=== PATIENT | female | born 1950 | race Caucasian/White ===

== ENCOUNTER 2017-05-08 12:42 | Emergency (ER) | payer MEDICARE, MEDICAID ==
[2017-05-08] MEDS ORDERED: ALBUTEROL SULFATE/IPRATROPIUM 3 ML NEBU IH ONE ×2 (12:53→15:40)
[2017-05-08 13:14] LABS: Hematocrit 39.1 % (37.0-47.0); Hemoglobin 12.3 gm/dL (12.5-16.0); Mean Cell Volume 91.4 fl (78-100); Mean Corpuscular Hemoglobin 28.7 pg (27-31); Mean Corpuscular Hgb Conc 31.5 g/dl (32-36); Mean Platelet Volume 10.5 fl (6.0-9.5); Platelet Count 270 K/mm3 (150-450); Red Blood Count 4.28 M/mm3 (4.2-5.4); Red Cell Distribution Width 13.1 % (11.5-14.0); White Blood Count 6.7 K/mm3 (4.0-10.5)
[2017-05-08 13:19] LABS: Total Cells Counted 100
[2017-05-08 13:27] LABS: Albumin * 2.8 gm/dl (3.4-5.0); Anion Gap 2.4 mmol/L (6.8-13.8); BUN/Creatinine Ratio 15.3 (9.0-21.6); Bilirubin, Total 0.3 mg/dL (0.0-1.1); Calcium * 9.4 mg/dL (7.9-10.9); Potassium 2.9 mmol/L (3.4-4.6); Total Protein 6.8 gm/dL (6.2-8.2)
[2017-05-08 13:34] LABS: Carbon Dioxide 42.5 mmol/L (24-32.6)
[2017-05-08 13:49] LABS: Atypical (Reactive) Lymph 7 % (0-2); Band 3 % (0-2.0); Basophil 1 % (0-1); Eosinophil 4 % (0-3); Immature Granulocyte 1 (0-1); Lymphocyte 14 % (20-51); Monocyte 10 % (0-9); Neutrophil 60 % (42-75)
[2017-05-08 13:51] LABS: Dohle Bodies Trace; Platelet Estimate Normal (NORMAL); Toxic Granulation 1+
[2017-05-08 15:07] VITALS: BP 125/74
--- NOTE | 2017-05-08 16:51 | ERNOTE ---
Trauma/Assault HPI - Narrative Date of Service: 05/08/17 - General Stated Complaint: FALL Time Seen by Provider: 05/08/17 12:45 Source: patient, EMS Exam Limitations: dementia - Immun/Allergies/Home Medications Immunizations: IMMUNIZATION HX Immunizations Up to Date unknown - pt is poor historian Hx Pneumococcal Vaccination More Information Required Allergies/Adverse Reactions: Allergies amoxicillin Allergy (Unknown, Verified 05/08/17 13:20) cephalexin [From Keflex] Allergy (Unknown, Verified 05/08/17 13:20) diatrizoate meglumine [From Renografin-60] Allergy (Unknown, Verified 05/08/17 13:20) diatrizoate sodium [From Renografin-60] Allergy (Unknown, Verified 05/08/17 13: 20) Iodinated Contrast- Oral and IV Dye Allergy (Unknown, Verified 05/08/17 13:20) iodine Allergy (Unknown, Verified 05/08/17 13:20) orphenadrine Allergy (Unknown, Verified 05/08/17 13:20) Quinolones Allergy (Unknown, Verified 05/08/17 13:20) Sulfa (Sulfonamide Antibiotics) Allergy (Unknown, Verified 05/08/17 13:20) Home Medications: HOME MEDICATIONS Acetaminophen [Mapap] 325 mg PO Q4H PRN 05/08/17 [Last Taken Unknown] Albuterol Sulfate [Albuterol Sulfate 0.63 MG/3ML] 0.083 mg IH Q4H PRN 05/08/17 [ Last Taken Unknown] Albuterol Sulfate [Ventolin HFA] 2 puff IH Q4H PRN 05/08/17 [Last Taken Unknown] Alprazolam [Xanax] 0.5 mg PO Q8H 05/08/17 [Last Taken Unknown] Amlodipine Besylate 10 mg PO DAILY 05/08/17 [Last Taken Unknown] Bisacodyl [Dulcolax Suppository] 10 mg RC Q3D PRN 05/08/17 [Last Taken Unknown] Bisacodyl [Dulcolax] 10 mg PO DAILY PRN 05/08/17 [Last Taken Unknown] Budesonide/Formoterol Fumarate [Symbicort 160-4.5 Mcg Inhaler] 2 puff IH BID [Last Taken Unknown] Cyclobenzaprine HCl 5 mg PO TID PRN 05/08/17 [Last Taken Unknown] Docusate Sodium [Doc-Q-Lace] 100 mg PO BID 05/08/17 [Last Taken Unknown] Ipratropium/Albuterol Sulfate [Combivent Respimat Inhal [place]] 1 puff IH QID [Last Taken Unknown] Omeprazole 20 mg PO DAILY 05/08/17 [Last Taken Unknown] Polyethylene Glycol 3350 [Miralax] 17 gm PO DAILY 05/08/17 [Last Taken Unknown] Potassium Chloride [K-Dur] 20 meq PO DAILY #5 tab 05/08/17 [Last Taken Unknown] Sertraline HCl [Zoloft] 50 mg PO DAILY 05/08/17 [Last Taken Unknown] risperiDONE [Risperdal] 0.5 mg PO Q8H 05/08/17 [Last Taken Unknown] - History of Present Illness Narrative: Patient presents from DC. By report she stood up and fell from the wheelchair injuring her right hip and there was concern for hip injury. She by report has chronic neck pain, this was present before the fall and nothing in the fall that would have caused a neck injury. She may have bumped her head but no LOC. She has dementia cannot provide any Hx. Location Occurred: Reports: other - [facility] Pain Location: Reports: other - right lateral hip area Method of Injury: Reports: fall Modifying Factors - (Worsens): Reports: movement Loss of Consciousness: Reports: no loss of consciousness Associated Symptoms - Trauma: Reports: other - unknown Review of Systems - Narrative Narrative: unable due to dementia - Review of Systems Constitutional: Absent: fever - Patient's Past Medical History Patient History - Medical: Anemia, Anxiety, Dementia, GERD Patient History - Cardiac/Respiratory: Asthma, COPD - Social History Smoking Status: Unknown if ever smoked - Immunizations Immunizations Up to Date: - unknown - pt is poor historian Hx Pneumococcal Vaccination: More Information Required to Determine Physical Exam - Physical Exam General Appearance: Present: no apparent distress Head Exam: Present: normal inspection, no evidence of injury. Absent: Valladares's Sign, raccoon eyes Eye Exam: Normal inspection: bilateral, PERRL: bilateral Ears, Nose, Throat: Present: normal ENT inspection Neck: Present: other - there is tendenrss low paraspinal neck musculature. After CT, no localizing point vertebral tendenress and no upper cervial spine tendenress. Nothing clinically to suggest fracture or ligamentous injury. Respiratory: Present: no respiratory distress, normal breath sounds, no accessory muscle use, other - few faint wheezes, resolved with neb. No clear chest tenderness. Cardiovascular/Chest: Present: regular rate, rhythm, normal peripheral pulses Gastrointestinal/Abdominal: Present: normal bowel sounds, nontender, soft Back Exam: Present: no vertebral tenderness Extremity Exam: Present: other - Mild lateral right hip tenderness. No clear evidence of fracture. Neurological Exam: Present: no motor/sensory deficits, other - alert but dementia noted. Skin Exam: Present: normal color, warm/dry ED Progress - Results and Orders Patient's Lab Results:: I have reviewed the patient's lab results. - Vital Signs Patient's Vital Signs:: I have reviewed the patient's vital signs. Vital Signs: Vital Signs 05/08/17 05/08/17 05/08/17 12:45 12:53 14:09 Temperature 36.2 C L Pulse Rate 111 H 112 H Respiratory 22 H 109 H Rate Blood Pressure 158/93 146/87 O2 Sat by Pulse Oximetry 05/08/17 05/08/17 14:54 15:42 Temperature Pulse Rate 108 H 108 H Respiratory 14 21 H Rate Blood Pressure 125/74 O2 Sat by Pulse 94 94 Oximetry - EKG EKG: NSR EKG read: Interp. by me EKG Comments: NSR rate 108 Non-specific changes, no STEMI. - X-Ray X-Ray #1 X-Ray: chest Interpretation: Interp. by me X-ray Comments: I reviewed officail radiology report X-Ray #2 X-Ray: hip Interpretation: Interp. by me X-ray Comments: I reviewed official radiology report - CT/Ultrasound CT/Ultrasound Narrative: I reviewed official radiology report for HCT and Cspine CT - Progress/Reassessment Chief Complaint: Fall Progress Note-Subjective: 05/08/17 16:[address] Mancuso. The elevated CO2 is felt to be chronic. She is in no respiratory distress. No clear Fx. She needs close f/u. Will return to the DC with close f/u/ Departure Clinical Impression: Fall, Musculoskeletal pain, Hypokalemia - Departure Disposition: [facility] Condition: Stable Instructions: Musculoskeletal Pain Additional Instructions: Rest. Close observation. Follow-up with primary doctor thursday for a re-check. Additional x-rays may be needed based on patient's symptoms. Return for increased pain, confusion, trouble breathing or if your condition worsens or changes in any way. Prescriptions: Potassium Chloride [K-Dur] 20 meq PO DAILY #5 tab Critical Care Time - Critical Care Critical Time Spent:: No Total time (mins) Spent:: 0
== END 2017-05-08 18:22 ==
LOC: ER 12:42
DX: M79.1 Myalgia (principal); E87.6 Hypokalemia; D64.9 Anemia, unspecified; K21.9 Gastro-esophageal reflux disease without esophagitis; J44.9 Chronic obstructive pulmonary disease, unspecified; F03.90 Unspecified dementia, unspecified severity, without behavioral disturbance, psychotic disturbance, mood disturbance, and anxiety; W18.39XA Other fall on same level, initial encounter; Z91.81 History of falling; Y93.89 Activity, other specified; Y92.129 Unspecified place in nursing home as the place of occurrence of the external cause

== ENCOUNTER 2017-05-12 10:08 | Emergency (ER) | payer MEDICARE, MEDICAID ==
[2017-05-12 10:40] LABS: Hematocrit 40.3 % (37.0-47.0); Hemoglobin 12.5 gm/dL (12.5-16.0); Mean Cell Volume 94.4 fl (78-100); Mean Corpuscular Hemoglobin 29.3 pg (27-31); Mean Platelet Volume 10.3 fl (6.0-9.5); Platelet Count 272 K/mm3 (150-450); Red Blood Count 4.27 M/mm3 (4.2-5.4); Red Cell Distribution Width 13.7 % (11.5-14.0); White Blood Count 7.8 K/mm3 (4.0-10.5)
[2017-05-12 10:42] LABS: Total Cells Counted 100
[2017-05-12 10:51] LABS: Prothrombin Time (Patient) 11.9 Seconds (9.0-11.0)
[2017-05-12 10:52] LABS: INR 1.19 INR (0.90-1.10); Partial Thrombolplastin Time 30.7 Seconds (24-32)
[2017-05-12 11:00] LABS: ALT 24 U/L (19-67); AST 24 U/L (0-48); Albumin * 2.6 gm/dl (3.4-5.0); Alkaline Phosphatase * 151 U/L (50-170); Anion Gap 3.2 mmol/L (6.8-13.8); BUN/Creatinine Ratio 18.6 (9.0-21.6); Bilirubin, Total 0.5 mg/dL (0.0-1.1); Blood Urea Nitrogen 11 mg/dL (3-23); Ca. Corrected For Albumin 9.9 mg/dL (8.4-10.2); Calcium * 9.1 mg/dL (7.9-10.9); Carbon Dioxide 44.5 mmol/L (24-32.6); Chloride 102 mmol/L (97-106); Glucose * 106 mg/dL (70-110); Potassium 3.7 mmol/L (3.4-4.6); Sodium 146 mmol/L (132-142); Total Protein 6.4 gm/dL (6.2-8.2); Troponin I Less than 0.017 ng/ml (0.00-0.10)
[2017-05-12 11:01] LABS: Atypical (Reactive) Lymph 7 % (0-2); Band 1 % (0-2.0); Basophil 1 % (0-1); Eosinophil 1 % (0-3); Lymphocyte 15 % (20-51); Monocyte 5 % (0-9); Neutrophil 70 % (42-75); Neutrophil # 5.5 K/mm3 (1.3-6.0)
[2017-05-12 11:02] LABS: Platelet Estimate Normal (NORMAL)
[2017-05-12 11:03] LABS: RBC Morphology Normal (NORMAL)
[2017-05-12 11:30] LABS: Urine Bilirubin 1 mg/dl (NEGATIVE); Urine Blood Negative /ul (NEGATIVE); Urine Ketone Negative (NEGATIVE); Urine Nitrite Negative (NEGATIVE); Urine Protein 15 mg/dL (NEGATIVE); Urine Urobilinogen Normal (NORMAL)
[2017-05-12 11:40] LABS: Urine Appearance Slightly Cloudy; Urine Bacteria None Seen; Urine Color Dark Yellow; Urine RBC TRACE /hpf (0-5); Urine Transitional Epi Cells Few - 1+ /hpf; Urine WBC 0-5 /hpf (0-5)
--- NOTE | 2017-05-12 14:07 | ERNOTE ---
<Wai Geller - Last Filed: 05/12/17 18:40> Neuro HPI ER Record Date of Service: 05/12/17 Presenting Symptoms: confusion Time Seen by Provider: 05/12/17 10:29 Source: family, EMS Exam Limitations: clinical condition Immunizations: IMMUNIZATION HX Immunizations Up to Date No: Unknown Hx Pneumococcal Vaccination More Information Required Allergies/Adverse Reactions: Allergies Allergy/AdvReac Type Severity Reaction Status Date / Time amoxicillin Allergy Unknown Verified 05/08/17 13:20 cephalexin [From Keflex] Allergy Unknown Verified 05/08/17 13:20 diatrizoate meglumine Allergy Unknown Verified 05/08/17 13:20 [From Renografin-60] diatrizoate sodium Allergy Unknown Verified 05/08/17 13:20 [From Renografin-60] Iodinated Contrast- Oral and Allergy Unknown Verified 05/08/17 13:20 IV Dye iodine Allergy Unknown Verified 05/08/17 13:20 orphenadrine Allergy Unknown Verified 05/08/17 13:20 Quinolones Allergy Unknown Verified 05/08/17 13:20 Sulfa (Sulfonamide Allergy Unknown Verified 05/08/17 13:20 Antibiotics) Home Medications: HOME MEDICATIONS Acetaminophen [Mapap] 325 mg PO Q4H PRN 05/08/17 [Last Taken Unknown] Albuterol Sulfate [Albuterol Sulfate 0.63 MG/3ML] 0.083 mg IH Q4H PRN 05/08/17 [ Last Taken Unknown] Albuterol Sulfate [Ventolin HFA] 2 puff IH Q4H PRN 05/08/17 [Last Taken Unknown] Alprazolam [Xanax] 0.5 mg PO Q8H 05/08/17 [Last Taken Unknown] Amlodipine Besylate 10 mg PO DAILY 05/08/17 [Last Taken Unknown] Bisacodyl [Dulcolax Suppository] 10 mg RC Q3D PRN 05/08/17 [Last Taken Unknown] Bisacodyl [Dulcolax] 10 mg PO DAILY PRN 05/08/17 [Last Taken Unknown] Budesonide/Formoterol Fumarate [Symbicort 160-4.5 Mcg Inhaler] 2 puff IH BID [Last Taken Unknown] Cyclobenzaprine HCl 5 mg PO TID PRN 05/08/17 [Last Taken Unknown] Docusate Sodium [Doc-Q-Lace] 100 mg PO BID 05/08/17 [Last Taken Unknown] Ipratropium/Albuterol Sulfate [Combivent Respimat Inhal [place]] 1 puff IH QID [Last Taken Unknown] Omeprazole 20 mg PO DAILY 05/08/17 [Last Taken Unknown] Polyethylene Glycol 3350 [Miralax] 17 gm PO DAILY 05/08/17 [Last Taken Unknown] Potassium Chloride [K-Dur] 20 meq PO DAILY #5 tab 05/08/17 [Last Taken Unknown] Sertraline HCl [Zoloft] 50 mg PO DAILY 05/08/17 [Last Taken Unknown] risperiDONE [Risperdal] 0.5 mg PO Q8H 05/08/17 [Last Taken Unknown] - History of Present Illness Narrative: Patient presents to the ED via EMS from the alf. She was noted to be more lethargic this am and may have been weaker on the right arm. This is all resolved on arrival. Family states that they think she is over medicated and think this is medication effect. They tell me that one month ago she went to the [facility] for her COPD. Her behaviors had required psychotropic medications but family thought she was overmedicated because she was subsequently diagnosed with dementia and transferred to another facility. Here she displays not findings of acute stroke but is yelling out. Onset: other - noticed this am. Context: other - Recent fall - Character of Deficits Additional Deficits: Absent: difficulty swallowing Associated Symptoms: Reports: altered mental status. Denies: fever/chills Prior Treament: Reports: recently seen Review of Systems - Narrative Narrative: unobtainable d/t patient underlying condition - Patient's Past Medical History Patient History - Medical: Anemia, Anxiety, Dementia, GERD Patient History - Cardiac/Respiratory: Asthma, COPD - Social History Living Situations: alf Abuse History: No History of abuse Psych History: Hx of Anxiety Smoking Status: Former smoker Have you smoked in the past 12 months: No Do you dip or chew tobacco: No Alcohol Use: none - Immunizations Immunizations Up to Date: No - Unknown Hx Pneumococcal Vaccination: More Information Required to Determine Physical Exam - Physical Exam General Appearance: Present: alert, other - yells out at times. No acute distress Head Exam: Present: normal inspection, no evidence of injury Eye Exam: Normal inspection: bilateral, PERRL: bilateral Ears, Nose, Throat: Present: normal ENT inspection Neck: Present: normal inspection, nontender. Absent: tender posterior midline Respiratory: Present: no respiratory distress, normal breath sounds, no accessory muscle use, lungs clear Cardiovascular/Chest: Present: regular rate, rhythm, normal peripheral pulses Gastrointestinal/Abdominal: Present: normal bowel sounds, nontender, nondistended, soft Back Exam: Present: no CVA tenderness, no vertebral tenderness Extremity Exam: Present: other - no deformity Neurological Exam: Present: alert, other - complicated by her underlying medical condition but holds both arms and both legs up off the bed against gravity. No clear CN deficits. nothign clinically to suggest Stroke. No clear stroke findings. Not in window for treatment and no clinical indication for tPA at this time. Skin Exam: Present: normal color, warm/dry ED Progress - Results and Orders Patient's Lab Results:: I have reviewed the patient's lab results. - Vital Signs Patient's Vital Signs:: I have reviewed the patient's vital signs. Vital Signs: Vital Signs 05/12/17 05/12/17 05/12/17 10:15 10:46 10:48 Temperature 36.2 C L Pulse Rate 113 H 111 H 112 H Respiratory 30 H 25 H Rate Blood Pressure 117/91 111/72 O2 Sat by Pulse 80 L 97 Oximetry 05/12/17 05/12/17 11:25 12:09 Temperature Pulse Rate 112 H 108 H Respiratory 22 H 22 H Rate Blood Pressure 138/94 125/89 O2 Sat by Pulse 97 97 Oximetry - EKG EKG read: Interp. by me EKG Comments: Sinus tachycardia rate 111. Non-specific ST/T wave changes, no STEMI. - X-Ray X-Ray #1 X-Ray: chest Interpretation: Interp. by me X-ray Comments: I reviewed official radiology report - CT/Ultrasound CT/Ultrasound Narrative: I reviewed official radiology report for HCT. - Progress/Reassessment Chief Complaint: CerebroVascular Accident - Transfer of Care Physician Sign Out: Wai Geller Receiving Physician: Jose Mcknight Expected Disposition: Transfer Departure Clinical Impression: Behavioral problem Mental status change Qualifiers: Altered mental status type: somnolence Qualified Code(s): R40.0 - Somnolence - Departure Disposition: [facility] Condition: Stable Instructions: Confusion Additional Instructions: Ofelia Ramachandran will call in the morning and set up psychiatric consultation. Referrals: Jose Burgos MD [Primary Care Provider] - <Juan LuisGaetanon - Last Filed: 05/13/17 02:56> Neuro HPI ER Record Immunizations: IMMUNIZATION HX Immunizations Up to Date No: Unknown Hx Pneumococcal Vaccination More Information Required ED Progress - Results and Orders Patient's Lab Results:: I have reviewed the patient's lab results. Results and Orders: Laboratory Tests 05/12/17 05/12/17 05/12/17 10:30 10:30 10:30 WBC 7.8 Hgb 12.5 Hct 40.3 Plt Count 272 ESR 40 H PT 11.9 H INR (Anticoag Therapy) 1.19 H PTT (Markus) 30.7 Sodium Potassium Chloride Carbon Dioxide Anion Gap BUN Creatinine Est GFR (Non-Af Amer) Random Glucose Calcium Total Bilirubin AST ALT Alkaline Phosphatase Troponin I Total Protein Albumin TSH Urine Color Urine Appearance Urine pH Ur Specific [place] Urine Protein Urine Glucose (UA) Urine Ketones Urine Blood Urine Nitrate Urine Bilirubin Urine Ictotest Prot Sulfosalicylic Acd Urine Urobilinogen Ur Leukocyte Esterase Urine RBC Urine WBC Ur Epithelial Cells Ur Transition Epith Cell Urine Bacteria Urine Culture Comments Urine Opiates Screen Barbiturate Screen Ur Phencyclidine Scrn Urine Amphetamine U Benzodiazepines Scrn Urine Cocaine Screen Urine Marijuana (THC) 05/12/17 05/12/17 05/12/17 10:30 10:30 11:24 WBC Hgb Hct Plt Count ESR PT INR (Anticoag Therapy) PTT (Markus) Sodium 146 H Potassium 3.7 D Chloride 102 Carbon Dioxide 44.5 H Anion Gap 3.2 L BUN 11 Creatinine 0.59 Est GFR (Non-Af Amer) 109 Random Glucose 106 Calcium 9.1 Total Bilirubin 0.5 AST 24 ALT 24 Alkaline Phosphatase 151 Troponin I Less than 0.017 Total Protein 6.4 Albumin 2.6 L TSH 0.115 L Urine Color Dark yellow Urine Appearance Slightly cloudy Urine pH 7.0 Ur Specific [place] 1.020 Urine Protein 15 H Urine Glucose (UA) Negative Urine Ketones Negative Urine Blood Negative Urine Nitrate Negative Urine Bilirubin 1 H Urine Ictotest Negative Prot Sulfosalicylic Acd Negative Urine Urobilinogen Normal Ur Leukocyte Esterase Negative Urine RBC Trace Urine WBC 0-5 Ur Epithelial Cells 5-10 H Ur Transition Epith Cell Few - 1+ H Urine Bacteria None seen Urine Culture Comments Culture to follow Urine Opiates Screen Barbiturate Screen Ur Phencyclidine Scrn Urine Amphetamine U Benzodiazepines Scrn Urine Cocaine Screen Urine Marijuana (THC) 05/12/17 11:24 WBC Hgb Hct Plt Count ESR PT INR (Anticoag Therapy) PTT (Markus) Sodium Potassium Chloride Carbon Dioxide Anion Gap BUN Creatinine Est GFR (Non-Af Amer) Random Glucose Calcium Total Bilirubin AST ALT Alkaline Phosphatase Troponin I Total Protein Albumin TSH Urine Color Urine Appearance Urine pH Ur Specific [place] Urine Protein Urine Glucose (UA) Urine Ketones Urine Blood Urine Nitrate Urine Bilirubin Urine Ictotest Prot Sulfosalicylic Acd Urine Urobilinogen Ur Leukocyte Esterase Urine RBC Urine WBC Ur Epithelial Cells Ur Transition Epith Cell Urine Bacteria Urine Culture Comments Urine Opiates Screen Negative Barbiturate Screen Negative Ur Phencyclidine Scrn Negative Urine Amphetamine Negative U Benzodiazepines Scrn Positive H Urine Cocaine Screen Negative Urine Marijuana (THC) Negative - Vital Signs Patient's Vital Signs:: I have reviewed the patient's vital signs. Vital Signs: Vital Signs 05/12/17 05/12/17 05/12/17 16:31 16:56 17:20 Pulse Rate 102 H 106 H 98 Respiratory 18 Rate Blood Pressure 134/99 126/75 122/74 O2 Sat by Pulse 97 94 94 Oximetry 05/12/17 05/12/17 05/12/17 17:55 18:20 18:37 Pulse Rate 107 H 102 H 107 H Respiratory 18 20 Rate Blood Pressure 115/74 118/75 123/77 O2 Sat by Pulse 94 95 96 Oximetry - Progress/Reassessment Progress Note-Subjective: 05/12/17 20:57 Nursing called and could not find a psychiatric facility that would accept her. She is not a harm to herself or others and she is not 67 so geriatric psych will not accept for dementia. I spoke with Ofelia Ramachandran -ED director who was in the ED this evening and she talked to case management. It was agreed that the patient did not meet criteria for psych admit, nor acute admit and would be most appropriate for out patient psychiatric referral. We talked to the niece that is here with her about her care in the alf and her medication changes. It is clear that her medication burden has increased since she has been [place] which was initially apparently for minimal reasons.
[2017-05-12 19:51] LABS: Cocaine Ur Negative (NEGATIVE); Urine Barbiturate Negative (NEGATIVE); Urine Opiates Negative (NEGATIVE); Urine PCP Negative (NEGATIVE); Urine THC Negative (NEGATIVE)
[2017-05-12 19:59] LABS: Urine Benzodiazepines Positive (NEGATIVE)
[2017-05-12 21:17] VITALS: BP 127/84
== END 2017-05-12 21:45 ==
LOC: ER 10:08
DX: R40.0 Somnolence (principal); F69 Unspecified disorder of adult personality and behavior; D64.9 Anemia, unspecified; K21.9 Gastro-esophageal reflux disease without esophagitis; J44.9 Chronic obstructive pulmonary disease, unspecified; F03.90 Unspecified dementia, unspecified severity, without behavioral disturbance, psychotic disturbance, mood disturbance, and anxiety; F41.9 Anxiety disorder, unspecified

== ENCOUNTER 2017-05-21 22:11 | Inpatient (IN) | payer MEDICARE, MEDICAID ==
[2017-05-21 23:15] LABS: Urine Bilirubin 1 mg/dl (NEGATIVE); Urine Blood Negative /ul (NEGATIVE); Urine Ketone Negative (NEGATIVE); Urine Nitrite Negative (NEGATIVE); Urine Protein Negative (NEGATIVE); Urine Specific Gravity 1.025 SP.GR. (1.005-1.010); Urine Urobilinogen Normal (NORMAL)
[2017-05-21 23:15] LABS: Hematocrit 41.9 % (37.0-47.0); Hemoglobin 12.6 gm/dL (12.5-16.0); Mean Cell Volume 98.1 fl (78-100); Mean Corpuscular Hemoglobin 29.5 pg (27-31); Mean Corpuscular Hgb Conc 30.1 g/dl (32-36); Neutrophil # 11.7 K/mm3 (1.3-6.0); Platelet Count 189 K/mm3 (150-450); Red Blood Count 4.27 M/mm3 (4.2-5.4); Red Cell Distribution Width 13.8 % (11.5-14.0); White Blood Count 13.6 K/mm3 (4.0-10.5)
[2017-05-21 23:18] LABS: Urine Appearance Clear; Urine Bacteria None Seen; Urine Color Yellow; Urine RBC 0-5 /hpf (0-5); Urine WBC 0-5 /hpf (0-5)
[2017-05-21 23:40] LABS: Troponin I Less than 0.017 ng/ml (0.00-0.10)
[2017-05-21] MEDS ORDERED: ALBUTEROL SULFATE 2.5 MG/0.5 ML VIAL.NEB IH ONE ×2 (23:40→23:41)
[2017-05-21 23:46] LABS: ALT 23 U/L (19-67); AST 38 U/L (0-48); Albumin * 2.5 gm/dl (3.4-5.0); Alkaline Phosphatase * 133 U/L (50-170); BNP * 727 pg/mL (5-205); BUN/Creatinine Ratio 30.2 (9.0-21.6); Bilirubin, Total 0.4 mg/dL (0.0-1.1); Blood Urea Nitrogen 16 mg/dL (3-23); CRP 5.1 mg/dL (0.0-0.9); Calcium * 9.1 mg/dL (7.9-10.9); Chloride 96 mmol/L (97-106); Glucose * 148 mg/dL (70-110); Potassium 4.1 mmol/L (3.4-4.6); Sodium 142 mmol/L (132-142); Total Protein 6.4 gm/dL (6.2-8.2)
[2017-05-21] MEDS ORDERED: METHYLPREDNISOLONE SOD SUCC/PF 40 MG/ML VIAL IV ONE (23:47)
[2017-05-21 23:56] LABS: Carbon Dioxide 50.6 mmol/L (24-32.6)
[2017-05-21] MEDS ORDERED: METHYLPREDNISOLONE SOD SUCC/PF 40 MG/ML VIAL ONE (23:58)
--- NOTE | 2017-05-22 00:27 | ERNOTE ---
Neuro HPI ER Record Date of Service: 05/22/17 Presenting Symptoms: weakness, confusion Time Seen by Provider: 05/21/17 22:32 Source: residential records Exam Limitations: physical impairment, dementia Immunizations: IMMUNIZATION HX Immunizations Up to Date No: Unknown Hx Pneumococcal Vaccination More Information Required Allergies/Adverse Reactions: Allergies Allergy/AdvReac Type Severity Reaction Status Date / Time amoxicillin Allergy Unknown Verified 05/08/17 13:20 cephalexin [From Keflex] Allergy Unknown Verified 05/08/17 13:20 diatrizoate meglumine Allergy Unknown Verified 05/08/17 13:20 [From Renografin-60] diatrizoate sodium Allergy Unknown Verified 05/08/17 13:20 [From Renografin-60] Iodinated Contrast- Oral and Allergy Unknown Verified 05/08/17 13:20 IV Dye iodine Allergy Unknown Verified 05/08/17 13:20 orphenadrine Allergy Unknown Verified 05/08/17 13:20 Quinolones Allergy Unknown Verified 05/08/17 13:20 Sulfa (Sulfonamide Allergy Unknown Verified 05/08/17 13:20 Antibiotics) Home Medications: HOME MEDICATIONS Acetaminophen [Mapap] 650 mg PO Q4H PRN 05/08/17 [Last Taken Unknown] Albuterol Sulfate [Albuterol Sulfate 0.63 MG/3ML] 0.083 mg IH Q4H PRN 05/08/17 [ Last Taken Unknown] Albuterol Sulfate [Ventolin HFA] 2 puff IH Q4H PRN 05/08/17 [Last Taken Unknown] Alprazolam [Xanax] 0.5 mg PO TID 05/08/17 [Last Taken Unknown] Amlodipine Besylate 10 mg PO DAILY 05/08/17 [Last Taken Unknown] Bisacodyl [Dulcolax Suppository] 10 mg RC Q3D PRN 05/08/17 [Last Taken Unknown] Bisacodyl [Dulcolax] 10 mg PO DAILY PRN 05/08/17 [Last Taken Unknown] Budesonide/Formoterol Fumarate [Symbicort 160-4.5 Mcg Inhaler] 2 puff IH BID [Last Taken Unknown] Cyclobenzaprine HCl 5 mg PO TID PRN 05/08/17 [Last Taken Unknown] Docusate Sodium [Doc-Q-Lace] 100 mg PO BID 05/08/17 [Last Taken Unknown] Ipratropium/Albuterol Sulfate [Combivent Respimat Inhal [place]] 1 puff IH QID [Last Taken Unknown] Omeprazole 20 mg PO DAILY 05/08/17 [Last Taken Unknown] Polyethylene Glycol 3350 [Miralax] 17 gm PO DAILY 05/08/17 [Last Taken Unknown] Potassium Chloride [K-Dur] 20 meq PO DAILY #5 tab 05/08/17 [Last Taken Unknown] Sertraline HCl [Zoloft] 50 mg PO DAILY 05/08/17 [Last Taken Unknown] risperiDONE [Risperdal] 1 mg PO HS 05/08/17 [Last Taken Unknown] ALPRAZolam [Xanax] 0.25 mg PO BID PRN 05/21/17 [Last Taken Unknown] - History of Present Illness Narrative: sent from residential with alterred mental status and low oxygenn saturations Onset: cannot confirm onset Severity: moderate Context: other - no knownn injury - Character of Deficits New weakness: Present: general (diffuse) Additional Deficits: Present: decrease ability to stand, decrease ability to walk Baseline Cognition: Present: poor alertness Baseline Gait: Present: walks w/o assistance Associated Symptoms: Reports: fever/chills, altered mental status Prior Treament: Reports: recently hospitalized Review of Systems - Narrative Narrative: unable to obtain reveiw of systems due to dementia - Review of Systems Constitutional: Present: weakness, fatigue Respiratory: Present: See HPI, shortness of breath, wheezing Cardiology: Present: no symptoms reported Gastrointestinal/Abdominal: Present: no symptoms reported Genitourinary: Present: no symptoms reported Musculoskeletal: Present: no symptoms reported Skin: Present: no symptoms reported Neurological: Present: no symptoms reported Endocrine: Present: no symptoms reported Hematologic/Lymphatic: Present: no symptoms reported Psych: Present: no symptoms reported - Narrative Narrative: patient sent from residential with alterred mental status an low o2 saturation - Patient's Past Medical History Patient History - Medical: Anemia, Anxiety, Dementia, GERD Patient History - Cardiac/Respiratory: Asthma, COPD Patient History - Cancer: History Unknown Patient History - Surgical Procedures: Noncontributory LMP (females 10-50): Menopausal - Social History Living Situations: assisted living Abuse History: No History of abuse Psych History: Hx of Anxiety - Immunizations Immunizations Up to Date: No - Unknown Hx Pneumococcal Vaccination: More Information Required to Determine Physical Exam - Physical Exam General Appearance: Present: lethargic Head Exam: Present: normal inspection, no evidence of injury Eye Exam: Normal inspection: bilateral, PERRL: bilateral, EOMI: bilateral Ears, Nose, Throat: Present: normal ENT inspection Neck: Present: normal inspection, nontender Respiratory: Present: decreased breath sounds, rales, rhonchi Cardiovascular/Chest: Present: regular rate, rhythm, normal peripheral pulses Peripheral Pulses: N=norm/S=strong/W=weak/B=bound/A=absent: Carotid (R): Normal , Carotid (L): Normal, Radial (R): Normal, Radial (L): Normal, Femoral (R): Normal, Femoral (L): Normal, Dorsalis-pedis (R): Normal, Dorsalis-pedis (L): Normal Gastrointestinal/Abdominal: Present: normal bowel sounds, nontender, nondistended, soft, no organomegaly Back Exam: Present: normal inspection, normal range of motion, no CVA tenderness , no vertebral tenderness Extremity Exam: Present: normal inspection, non-tender, normal range of motion, no edema Neurological Exam: Present: disoriented to person, disoriented to time, disoriented to place, disoriented to situation DTR: N=norm/NB=norm/brisk/A=abs/DD=dull/dimin/HC=hyperactive: Bicep (R): Normal , Bicep (L): Normal, Tricep (R): Normal, Tricep (L): Normal, Knee (R): Normal, Knee (L): Normal, Ankle (R): Normal, Ankle (L): Normal Skin Exam: Present: normal color, warm/dry Lymphatic Exam: Present: no adenopathy Pa[place] Coma Scale - Assess Eye Opening: To Pain Motor: Withdraws to Pain Verbal: Incomprehensible - Total Coma Scale Total: 8 ED Progress - Results and Orders Patient's Lab Results:: I have reviewed the patient's lab results. - Vital Signs Patient's Vital Signs:: I have reviewed the patient's vital signs. Vital Signs: Vital Signs 05/21/17 05/21/17 05/21/17 22:15 22:22 22:54 Temperature 37.0 C Pulse Rate 118 H 113 H 112 H Respiratory 29 H 22 H Rate Blood Pressure 135/76 129/81 O2 Sat by Pulse 94 94 Oximetry 05/21/17 05/21/17 05/21/17 23:24 23:42 23:43 Temperature Pulse Rate 108 H 102 H 105 H Respiratory 28 H 28 H 30 H Rate Blood Pressure 140/74 134/68 O2 Sat by Pulse 93 96 96 Oximetry 05/22/17 00:02 Temperature Pulse Rate 113 H Respiratory 26 H Rate Blood Pressure 141/82 O2 Sat by Pulse 96 Oximetry - EKG EKG: NSR - X-Ray X-Ray #1 X-Ray: chest - copd no infiltrate noted - Progress/Reassessment Chief Complaint: Altered Mental Status Progress:: Unchanged - case discussed with marya bidr admission pending - Transfer of Care Expected Disposition: Admit Plan - Plan Plan: admission to hospital Departure Clinical Impression: Altered awareness, transient, COPD exacerbation - Departure Disposition: [facility] Condition: Serious
[2017-05-22] MEDS ORDERED: AZITHROMYCIN 500 MG in DEXTROSE 5 % IN WATER 250 ML IV ONE ×2 (00:30)
[2017-05-22] MEDS ORDERED: ACETAMINOPHEN 325 MG TABLET PO PRN (01:52)
[2017-05-22] MEDS ORDERED: BISACODYL 10 MG SUPP.RECT RC PRN (01:52)
[2017-05-22] MEDS ORDERED: BISACODYL 5 MG TABLET.DR PO PRN (01:52)
[2017-05-22] MEDS ORDERED: POLYVINYL ALCOHOL 150 DROP BTL EACHEYE PRN (02:14)
[2017-05-22] MEDS ORDERED: DEXTROSE 5%-0.5 NORMAL SALINE 1,000 ML IV PRN (02:14)
[2017-05-22] MEDS: METHYLPREDNISOLONE SOD SUCC 80 MG in WATER FOR INJ.,BACTERIOSTATIC 0 ML IV SCH ×4 (02:35→18:45)
[2017-05-22] MEDS: ALBUTEROL SULFATE/IPRATROPIUM 3 ML NEBU IH SCH ×7 (02:49→22:17)
[2017-05-22 05:53] LABS: Hematocrit 39.1 % (37.0-47.0); Hemoglobin 11.8 gm/dL (12.5-16.0); Mean Cell Volume 96.1 fl (78-100); Mean Corpuscular Hgb Conc 30.2 g/dl (32-36); Mean Platelet Volume 10.2 fl (6.0-9.5); Platelet Count 211 K/mm3 (150-450); Red Blood Count 4.07 M/mm3 (4.2-5.4); Red Cell Distribution Width 13.7 % (11.5-14.0); White Blood Count 12.3 K/mm3 (4.0-10.5)
[2017-05-22 05:56] LABS: Total Cells Counted 100
[2017-05-22 06:00] LABS: Albumin * 2.3 gm/dl (3.4-5.0); Anion Gap 4.5 mmol/L (6.8-13.8); BUN/Creatinine Ratio 28.1 (9.0-21.6); Bilirubin, Total 0.5 mg/dL (0.0-1.1); Potassium 4.1 mmol/L (3.4-4.6); Total Protein 6.4 gm/dL (6.2-8.2)
[2017-05-22 06:24] LABS: Carbon Dioxide 48.3 mmol/L (24-32.6); Lymphocyte 1 % (20-51); Monocyte 1 % (0-9); Neutrophil 98 % (42-75); Neutrophil # 12.1 K/mm3 (1.3-6.0); Platelet Estimate Normal (NORMAL); RBC Morphology Normal (NORMAL)
--- NOTE | 2017-05-22 06:37 | HP ---
Chief Complaint - Chief Complaint Date of Service: 05/22/17 Time of Service: 02:30 Chief Complaint: AMS History of Present Illness: Pt is a [address] Mancuso who presented from her [facility] last evening with complaints of AMS and hypoxia-reported pulse ox of 86% on 2L. 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 This is her third admission within the past month for similar episodes. Previously released back to the [facility] with a CO2 of 78 on 05/12/17 thought at that time to be chronic in nature. Unclear what her true baseline is, although correction staff say she is usually cooperative and alert, although it appears through the last visits this may have waxed and waned. Upon presentation she was noted to have hypercapnia respiratory failure and acidosis with a Co2 of 98 and pH of 7.27. She was tachypnic with coarse wheezes, chest xray was consistent with COPD, no evidence of consolidation, head CT was completed-final result pending. UA was negative. Slight elevation in leukocytes at 13.6. She was given solumedrol and azithromycin. She will be admitted to in pt for further treatment of COPD exacerbation with continuous bi- pap, IV antibiotics and steroids. - Patient's Past Medical History Patient History - Medical: Anemia, Anxiety, Dementia, GERD Patient History - Cardiac/Respiratory: Asthma, COPD, Hypertension, Other - TBI Patient History - Cancer: History Unknown Patient History - Surgical Procedures: Noncontributory, Hysterectomy Patient History - Other: None LMP (females 10-50): Menopausal - Social History Living Situations: correction Abuse History: No History of abuse Psych History: Hx of Anxiety Smoking Status: Never smoker Have you smoked in the past 12 months: No Alcohol Use: none Drug Use: none - Immunizations Immunizations Up to Date: Yes - Unknown Hx Pneumococcal Vaccination: Yes History of Influenza Vaccine: Yes Review Of Systems (GEN) - Review of Systems Generalized/Overall Review: Present: No Symptoms Reported - Unable to access as pt is confused and unresponsive. Immunizations: IMMUNIZATION HX Immunizations Up to Date No: Unknown Hx Pneumococcal Vaccination More Information Required Allergies/Adverse Reactions: Allergies Allergy/AdvReac Type Severity Reaction Status Date / Time amoxicillin Allergy Unknown Verified 05/22/17 01:04 cephalexin [From Keflex] Allergy Unknown Verified 05/22/17 01:04 diatrizoate meglumine Allergy Unknown Verified 05/22/17 01:04 [From Renografin-60] diatrizoate sodium Allergy Unknown Verified 05/22/17 01:04 [From Renografin-60] Iodinated Contrast- Oral and Allergy Unknown Verified 05/22/17 01:04 IV Dye iodine Allergy Unknown Verified 05/22/17 01:04 orphenadrine Allergy Unknown Verified 05/22/17 01:04 Quinolones Allergy Unknown Verified 05/22/17 01:04 Sulfa (Sulfonamide Allergy Unknown Verified 05/22/17 01:04 Antibiotics) codeine Allergy Verified 05/22/17 01:04 Home Medications: HOME MEDICATIONS Acetaminophen [Mapap] 650 mg PO Q4H PRN 05/08/17 [Last Taken 05/15/17 06:28] Albuterol Sulfate [Albuterol Sulfate 0.63 MG/3ML] 0.083 mg IH Q4H PRN 05/08/17 [ Last Taken Unknown] Albuterol Sulfate [Ventolin HFA] 2 puff IH Q4H PRN 05/08/17 [Last Taken Unknown] Amlodipine Besylate 10 mg PO DAILY 05/08/17 [Last Taken 05/20/17 07:30] Bisacodyl [Dulcolax Suppository] 10 mg RC Q3D PRN 05/08/17 [Last Taken Unknown] Bisacodyl [Dulcolax] 10 mg PO DAILY PRN 05/08/17 [Last Taken Unknown] Budesonide/Formoterol Fumarate [Symbicort 160-4.5 Mcg Inhaler] 2 puff IH BID [Last Taken Unknown] Cyclobenzaprine HCl 5 mg PO TID PRN 05/08/17 [Last Taken 05/07/17 13:24] Docusate Sodium [Doc-Q-Lace] 100 mg PO BID 05/08/17 [Last Taken 05/21/17 16:30] Ipratropium/Albuterol Sulfate [Combivent Respimat Inhal [place]] 1 puff IH QID [Last Taken 05/21/17 11:30] Omeprazole 20 mg PO DAILY 05/08/17 [Last Taken 05/20/17 07:30] Polyethylene Glycol 3350 [Miralax] 17 gm PO DAILY 05/08/17 [Last Taken 05/20/17 07:30] Potassium Chloride [K-Dur] 20 meq PO DAILY #5 tab 05/08/17 [Last Taken 05/20/17 17:00] Sertraline HCl [Zoloft] 50 mg PO DAILY 05/08/17 [Last Taken 05/20/17 07:30] risperiDONE [Risperdal] 1 mg PO HS 05/08/17 [Last Taken 05/19/17 20:00] ALPRAZolam [Xanax] 0.5 mg PO TID 05/22/17 [Last Taken 05/20/17 14:00] Alprazolam [Xanax] 0.25 mg PO BID PRN 05/22/17 [Last Taken 05/17/17 16:45] Budesonide/Formoterol Fumarate [Symbicort 160-4.5 Mcg Inhaler] 2 puff IH BID 07/08 [Last Taken 05/21/17 07:30] Exam - Exam Vital Signs: Vital Signs - Last Taken Temp 36.8 C 05/22/17 00:36 Pulse 104 H 05/22/17 02:59 Resp 26 H 05/22/17 02:59 BP 142/82 05/22/17 00:36 Pulse Ox 90 05/22/17 02:53 Diagnostic Studies: Abnormal Lab Results 05/22/17 Range/Units 05:00 pCO2 69.5 H (32.0-45.0) mmHg pO2 54.2 L (83.0-108.0) mmHg HCO3 47.1 H (21.0-28.0) mmol/L Total CO2 49.2 H (19.0-24.0) mmol/L Base Excess 19.5 H (-2.0-3.0) mmol/L ABG O2 Sat (Measured) 88.1 L (94.0-98.0) % Laboratory Results Laboratory Tests 05/21/17 05/21/17 05/21/17 22:55 23:16 23:16 WBC 13.6 H Hgb 12.6 Hct 41.9 Plt Count 189 Neutrophils % 86.0 H Neutrophils # 11.7 H pCO2 pO2 HCO3 Total CO2 Base Excess ABG pH ABG O2 Sat (Measured) Sodium 142 Potassium 4.1 Chloride 96 L Carbon Dioxide 50.6 H BUN 16 Creatinine 0.53 Lactic Acid, Venous 0.9 Total Bilirubin 0.4 AST 38 ALT 23 Alkaline Phosphatase 133 Troponin I Less than 0.017 C-Reactive Prot, Quant 5.1 H B-Natriuretic Peptide 727 H Procalcitonin Urine Nitrate Ur Leukocyte Esterase Urine Bacteria 05/21/17 05/21/17 05/21/17 23:16 23:16 23:34 WBC Hgb Hct Plt Count Neutrophils % Neutrophils # pCO2 98.4 H* pO2 56.8 L HCO3 44.3 H Total CO2 47.3 H Base Excess 13.5 H ABG pH 7.27 L ABG O2 Sat (Measured) 83.2 L Sodium Potassium Chloride Carbon Dioxide BUN Creatinine Lactic Acid, Venous Total Bilirubin AST ALT Alkaline Phosphatase Troponin I C-Reactive Prot, Quant B-Natriuretic Peptide Procalcitonin 0.05 Urine Nitrate Negative Ur Leukocyte Esterase Negative Urine Bacteria None seen Assessment/Plan - Assessment/Plan (1) Hypercapnic acidosis Assessment: Pt presents with hypercapnia respiratory failure, acidosis and hypoxia, with saturations in the mid 80's on 2LNC. Chest xray is consistent with COPD, she will be started on azithromycin, prednisone, duoneb treatments, as well as continuous bipap to assist in bringing her Co2 down for acute COPD exacerbations. Will repeat ABG's in the morning, with a goal pulse ox of 88%. Problem: Acute (2) COPD exacerbation Assessment: Pt presents with respiratory failure and hypoxia, with saturations in the mid 80 's on 2LNC. Chest xray is consistent with COPD, she will be started on azithromycin, prednisone, duoneb treatments, as well as continuous bipap to assist in bringing her Co2 down. Will repeat ABG's, with a goal pulse ox of 88% . Problem: Acute (3) Mental status change Assessment: Pt has multiple underlying medical co-morbidities that could be attributing to her decline in mental status. She has been to the ER three times within the past month with continual mental decline. Hypercapnia respiratory failure and acidosis with a CO2 of 98 could be attributing as well as progressive underlying dementia and bacterial with COPD exacerbation. Head CT did not, to me , appear with any acute abnormalities, although final read is not in. Will treat with continuous bipap, azithromycin, prednisone, and scheduled breathing treatments. Will repeat ABG in am. Problem: Acute
[2017-05-22] MEDS ORDERED: 0.5 NORMAL SALINE 1,000 ML IV PRN (06:40)
[2017-05-22] MEDS: FLUTICASONE/SALMETEROL 14 PUFF DISK.W.DEV IH SCH ×2 (10:30→20:26)
[2017-05-22] MEDS: POLYETHYLENE GLYCOL 3350 119 GM BTL PO SCH (10:30)
[2017-05-22] MEDS: amLODIPine BESYLATE 10 MG TABLET PO SCH (10:30)
[2017-05-22] MEDS: PANTOPRAZOLE SODIUM 20 MG TABLET.DR PO SCH (10:30)
[2017-05-22] MEDS: DOCUSATE SODIUM 100 MG CAPSULE PO SCH ×2 (10:30→20:26)
[2017-05-22] MEDS: SERTRALINE HCL 50 MG TABLET PO SCH (10:31)
--- NOTE | 2017-05-22 13:50 | PROC NOTE ---
ED Procedures - Additional Procedures Additional Procedures: lumbar puncture Progress: DATE OF PROCEDURE: 05/22/2017 PHYSICIAN PERFORMING PROCEDURE: Mary Villeda DO PROCEDURE: Lumbar Puncture INDICATION: Encephalopathy ANESTHESIA: 3cc local 1% lidocaine with epi DESCRIPTION OF PROCEDURE: The potential risks and complications of the procedure were discussed with the patient's son, Deepak, her POA and proper consent was obtained prior to the procedure. The area was prepped and draped in the usual sterile fashion. Using landmarks, a 22-gauge spinal needle was inserted in the L4-L5 space and 4 tubes each containing approximately 1-2cc of clear spinal fluid was collected and sent for analysis. The patient tolerated the procedure well without any apparent difficulties or complications. COMPLICATIONS: No immediate complications noted.
[2017-05-22 14:56] LABS: CSF Appearance Clear (CLEAR); CSF Color Colorless (COLORLESS)
[2017-05-22 14:57] LABS: CSF RBC 179 /uL (0-10)
[2017-05-22 14:58] LABS: CSF WBC 6 /uL (0-10)
[2017-05-22] MEDS: ENOXAPARIN SODIUM 40 MG/0.4 ML SYRG SC SCH (17:04)
[2017-05-22 17:22] LABS: Cocaine Ur Negative (NEGATIVE); Urine Barbiturate Negative (NEGATIVE); Urine Opiates Negative (NEGATIVE); Urine PCP Negative (NEGATIVE); Urine THC Negative (NEGATIVE)
[2017-05-22 17:24] LABS: Urine Benzodiazepines Positive (NEGATIVE)
[2017-05-22 20:24] LABS: T4 Free * 1.22 ng/dL (0.76-1.46); TSH * 0.048 uIU/mL (0.358-3.74)
[2017-05-22] MEDS ORDERED: risperiDONE 1 MG TABLET PO SCH (21:00)
[2017-05-22] MEDS ORDERED: AZITHROMYCIN 500 MG in DEXTROSE 5 % IN WATER 250 ML IV SCH ×2 (22:00)
[2017-05-23] MEDS: METHYLPREDNISOLONE SOD SUCC 80 MG in WATER FOR INJ.,BACTERIOSTATIC 0 ML IV SCH ×2 (00:39→06:50)
[2017-05-23] MEDS: ALBUTEROL SULFATE/IPRATROPIUM 3 ML NEBU IH SCH ×3 (02:06→11:24)
[2017-05-23 05:45] LABS: Hematocrit 35.4 % (37.0-47.0); Hemoglobin 11.3 gm/dL (12.5-16.0); Mean Cell Volume 91.2 fl (78-100); Mean Corpuscular Hemoglobin 29.1 pg (27-31); Mean Corpuscular Hgb Conc 31.9 g/dl (32-36); Mean Platelet Volume 9.8 fl (6.0-9.5); Neutrophil # 9.4 K/mm3 (1.3-6.0); Neutrophil % 92.7 % (42-75.0); Platelet Count 192 K/mm3 (150-450); Red Blood Count 3.88 M/mm3 (4.2-5.4); White Blood Count 10.1 K/mm3 (4.0-10.5)
[2017-05-23 06:03] LABS: Albumin * 2.2 gm/dl (3.4-5.0); Anion Gap 7.6 mmol/L (6.8-13.8); BUN/Creatinine Ratio 39.6 (9.0-21.6); Bilirubin, Total 0.5 mg/dL (0.0-1.1); Ca. Corrected For Albumin 9.7 mg/dL (8.4-10.2); Calcium * 8.6 mg/dL (7.9-10.9); Carbon Dioxide 39.6 mmol/L (24-32.6); Potassium 3.2 mmol/L (3.4-4.6); Total Protein 6.2 gm/dL (6.2-8.2)
[2017-05-23] MEDS: PANTOPRAZOLE SODIUM 20 MG TABLET.DR PO SCH (06:50)
[2017-05-23] MEDS: POTASSIUM CHLORIDE 100 ML IV SCH ×4 (07:21→14:38)
[2017-05-23] MEDS: amLODIPine BESYLATE 10 MG TABLET PO SCH (08:40)
[2017-05-23] MEDS: SERTRALINE HCL 50 MG TABLET PO SCH (08:40)
[2017-05-23] MEDS: DOCUSATE SODIUM 100 MG CAPSULE PO SCH (08:40)
[2017-05-23] MEDS: POLYETHYLENE GLYCOL 3350 119 GM BTL PO SCH (08:40)
[2017-05-23] MEDS: FLUTICASONE/SALMETEROL 14 PUFF DISK.W.DEV IH SCH (08:40)
[2017-05-23] MEDS: ENOXAPARIN SODIUM 40 MG/0.4 ML SYRG SC SCH (11:51)
[2017-05-23] MEDS ORDERED: NALOXONE HCL 1 MG/1 ML SYRG IV STA (13:10)
[2017-05-23] MEDS ORDERED: THIAMINE HCL 100 MG in NORMAL SALINE 50 ML IV ONE (13:12)
[2017-05-23 14:29] VITALS: BP 156/91
[2017-05-23] MEDS ORDERED: FLUTICASONE/SALMETEROL 14 PUFF DISK.W.DEV IH SCH (21:00)
[2017-05-24] MEDS ORDERED: POLYETHYLENE GLYCOL 3350 119 GM BTL PO SCH (09:00)
--- NOTE | 2017-05-25 11:37 | DS ---
Transfer Discharge Summary - Course Description of Stay: ADMISSION DATE: 05/22/2017 TRANSFER DISCHARGE DATE: 05/23/2017 ADMISSION HPI: Pt is a [address] Mancuso who presented from her [facility] last evening with complaints of AMS and hypoxia-reported pulse ox of 86% on 2L. 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 This is her third admission within the past month for similar episodes. Previously released back to the [facility] with a CO2 of 78 on 05/12/17 thought at that time to be chronic in nature. Unclear what her true baseline is, although assisted staff say she is usually cooperative and alert, although it appears through the last visits this may have waxed and waned. Upon presentation she was noted to have hypercapnia respiratory failure and acidosis with a Co2 of 98 and pH of 7.27. She was tachypnic with coarse wheezes, chest xray was consistent with COPD, no evidence of consolidation, head CT was completed-final result pending. UA was negative. Slight elevation in leukocytes at 13.6. She was given solumedrol and azithromycin. She will be admitted to in pt for further treatment of COPD exacerbation with continuous bi- pap, IV antibiotics and steroids. HOSPITAL COURSE: The patient was admitted to the hospital for acute encephalopathy. She was found to be in hypercapnic respiratory acidosis and was placed on bipap with improvement in her hypercapnia but only very minimal improvement in her mentation. A work-up for the patients encephalopathy was initiated and including a lumbar puncture which was negative for any bacterial infection ( viral labs pending at time of transfer although CSF analysis not consistent with infection), ammonia level which was normal, drug screen which was only positive for benzodiazepines which she is prescribed, unremarkable head CT, etc. A brain MRI was attempted but unsuccessful secondary to the patients clinical condition and being non-cooperative. I discussed the patients case with the triage physician at the [facility] as I felt the patient needed a higher level of care for further evaluation with ability to consult neurology or other specialists as necessary. Of note, [facility] was contacted and they do not have neurology services available on the weekends. The [facility] accepted the patient for transfer and based on the [facility] physicians recommendations, the patient was given Narcan and thiamine prior to transfer. Procedures Performed: see notes below Procedures: DATE OF PROCEDURE: 05/22/2017 PHYSICIAN PERFORMING PROCEDURE: Mary Villeda DO PROCEDURE: Lumbar Puncture INDICATION: Encephalopathy ANESTHESIA: 3cc local 1% lidocaine with epi DESCRIPTION OF PROCEDURE: The potential risks and complications of the procedure were discussed with the patient's son, Deepak, her POA and proper consent was obtained prior to the procedure. The area was prepped and draped in the usual sterile fashion. Using landmarks, a 22-gauge spinal needle was inserted in the L4-L5 space and 4 tubes each containing approximately 1-2cc of clear spinal fluid was collected and sent for analysis. The patient tolerated the procedure well without any apparent difficulties or complications. COMPLICATIONS: No immediate complications noted. - Results and Findings Results and Findings: Laboratory Results - last 24 hr 05/22/17 19:50 Total T3 84 - Medications Medications: Active Medications Discontinued Medications Albuterol Sulfate (Albuterol Sulfate 2.5 Mg/0.5ml) 2.5 mg IH ONCE ONE Stop: 05/21/17 23:41 Last Admin: 05/21/17 23:42 Dose: 2.5 mg Albuterol/Ipratropium (Duoneb 2.5-0.5mg/3ml Soln) 3 ml IH Q4HRT RIK Stop: 06/21/17 02:01 Last Admin: 05/23/17 11:24 Dose: 3 ml Amlodipine Besylate (Norvasc) 10 mg PO DAILY RIK Stop: 06/21/17 09:01 Last Admin: 05/23/17 08:40 Dose: Not Given Docusate Sodium (Colace) 100 mg PO BID RIK Stop: 06/21/17 09:01 Last Admin: 05/23/17 08:40 Dose: Not Given Enoxaparin Sodium (Lovenox) 40 mg SC Q24H RIK Stop: 06/21/17 12:16 Last Admin: 05/23/17 11:51 Dose: 40 mg Azithromycin 500 mg/ Dextrose/ (Water) 250 mls @ 250 mls/hr IV ONCE ONE PRN Reason: Protocol Stop: 05/22/17 01:29 Last Admin: 05/22/17 02:52 Dose: 250 mls/hr Methylprednisolone Sodium (Succinate 80 mg/ Sterile Water) 0.64 mls @ 35 mls/ hr IV Q6H RIK Stop: 06/21/17 00:31 Last Admin: 05/23/17 06:50 Dose: 60 mls/hr Dextrose/Sodium Chloride (Dextrose 5%-0.45%Ns) 1,000 mls @ 30 mls/hr IV .Q24H PRN PRN Reason: HYDRATION Stop: 06/21/17 02:15 Last Infusion: 05/22/17 07:02 Dose: Infused Azithromycin 500 mg/ Dextrose/ (Water) 250 mls @ 250 mls/hr IV Q24H RIK PRN Reason: Protocol Stop: 06/21/17 22:01 Last Admin: 05/22/17 22:49 Dose: 250 mls/hr Sodium Chloride (Sodium Chloride 0.45%) 1,000 mls @ 30 mls/hr IV .Q24H PRN PRN Reason: HYRDATION Stop: 06/21/17 06:41 Last Admin: 05/22/17 07:01 Dose: 30 mls/hr Potassium Chloride (Kcl 10 Meq/100 Ml Piggyback) 100 mls @ 100 mls/hr IV Q1H RIK Stop: 05/23/17 10:29 Last Admin: 05/23/17 14:38 Dose: 100 mls/hr Thiamine HCl 100 mg/ Sodium (Chloride) 51 mls @ 100 mls/hr IV ONCE ONE Stop: 05/23/17 13:42 Last Admin: 05/23/17 13:53 Dose: 100 mls/hr Methylprednisolone Sodium Succinate (Solu-Medrol) 80 mg IV ONCE ONE Stop: 05/21/17 23:48 Last Admin: 05/21/17 23:58 Dose: 80 mg Naloxone HCl (Narcan) 0.4 mg IV ONCE STA Stop: 05/23/17 13:11 Last Admin: 05/23/17 13:44 Dose: 0.4 mg Pantoprazole Sodium (Protonix) 20 mg PO DAILY@0700 RIK Stop: 06/21/17 07:01 Last Admin: 05/23/17 06:50 Dose: Not Given Polyethylene Glycol (Miralax) 17 gm PO DAILY RIK Stop: 06/21/17 09:01 Last Admin: 05/23/17 08:40 Dose: Not Given Fluticasone/Salmeterol (Advair 500-50 Diskus) 1 puff IH BID RIK Stop: 06/21/17 09:01 Last Admin: 05/23/17 08:40 Dose: Not Given Sertraline HCl (Zoloft) 50 mg PO DAILY [facility] Stop: 06/21/17 09:01 Last Admin: 05/23/17 08:40 Dose: Not Given - Disposition Disposition: [facility] Condition: Fair Discharge Date: 05/23/17
[2017-05-26 19:24] LABS: WNV IgG Ab <1.30 index
[2017-05-30 21:01] LABS: CSF VDRL NON-REACTIVE
[2017-05-31 06:21] LABS: HSV 2 DNA NOT DETECTED
== END 2017-05-23 15:40 | disposition short-term general hospital (02) | DRG 190 ==
LOC: ER 22:11 → MS 05-22 00:19
PROVIDERS: ADMIT Nurse Practitioner Gerontology; ATTEND Internal Medicine
PROC: 4A033R1 Measurement of Arterial Saturation, Peripheral, Percutaneous Approach (ICD-10-PCS; principal; 2017-05-21)
PROC: 009U3ZX Drainage of Spinal Canal, Percutaneous Approach, Diagnostic (ICD-10-PCS; 2017-05-22)
PROC: 5A09357 Assistance with Respiratory Ventilation, Less than 24 Consecutive Hours, Continuous Positive Airway Pressure (ICD-10-PCS; 2017-05-22)
DX: J44.1 Chronic obstructive pulmonary disease with (acute) exacerbation (principal); G93.40 Encephalopathy, unspecified; E87.2 Acidosis; R06.89 Other abnormalities of breathing; F03.90 Unspecified dementia, unspecified severity, without behavioral disturbance, psychotic disturbance, mood disturbance, and anxiety; I10 Essential (primary) hypertension